=== PATIENT | female | born 1960 | race Caucasian/White ===

== ENCOUNTER 2024-10-20 02:53 | Inpatient (IN) | payer BC, SELFPAY ==
[2024-10-19 21:56] VITALS: BP 186/101
--- NOTE | 2024-10-19 22:12 | ED.GENMED ---
History of Present Illness
General
Chief Complaint: Chest Pain
Source: patient and spouse
Exam Limitations: none
Time Seen by Provider: 10/19/24 22:09
Nursing documentation reviewed up to this point in time: agreed with
History of Present Illness
History of Present Illness:
Pleasant 64-year-old female presents to the emergency department with months of heaviness in her chest. She feels that her 'heart is beating out of her chest '. This has been happening nearly every day 2 to 3 days. Patient states that having
similar symptoms for several months. Denies fever, chills, nausea or vomiting. States that she drinks at least 16 ounces of coffee daily. She usually has a half a bottle of wine each night. Tonight she admits to consuming alcohol. She denies
any medical problems. She does not take any medicines. Has no previous cardiac history.
Past History
Past History
ED Past Surgical History: Negative Cardiac
Social History
Tobacco: Non-smoker
Alcohol: None
Drug: None
Personal:
Living: with family
Employment: Employed
Review of Systems
Review of Systems
Allergies reviewed?: Yes
All Other Systems: ROS reviewed and negative except as documented in HPI and ROS
Constitutional: Reports no symptoms
EENT: Reports no symptoms
Respiratory: Reports no symptoms
Cardiac: Reports no symptoms
ABD/GI: Reports no symptoms
: Reports no symptoms
Musculoskeletal: Reports no symptoms
Skin: Reports no symptoms
Neurological: Reports no symptoms
Endocrine: Reports no symptoms
Hematologic/Lymphatic: Reports no symptoms
Psychiatric: Reports anxiety
Phy Exam
General Physical Exam
General Presentation: well appearing and no apparent distress
General Skin: warm and dry
General Habitus: normal
General Mental: alert
General Hydration: appears well hydrated
ENT Exam
ENT Exam: EOMI, pharynx normal, neck supple and normocephalic
Eye Exam
Eye Exam: PERRL, cornea clear and conjunctiva normal
Cardiovascular Exam
Cardiovascular Exam: regular rate/rhythm, no edema, no murmur and normal peripheral pulses
Pulmonary Exam
Pulmonary Exam: lungs clear, no respiratory distress, no rales, no crackles, no rhonchi, no stridor, no wheezing and no cough
Gastrointestinal Exam
Gastrointestinal Exam: normal bowel sounds, non tender, soft, no organomegaly, no pulsatile mass and non distended
Neurological Exam
Neurological Exam: alert, oriented x3, no motor deficits and speech normal
Musculoskeletal Exam
Musculoskeletal Exam: full ROM and no edema
Skin Exam
Skin Exam: normal color, warm/dry, no rash and no petechia
Psychiatric Exam
Psychiatric Exam: anxious
Scores
Heart Score for Chest Pain Patients
STEMI patient?: No
History: Moderately Suspicious
ECG: Normal
Age: >45 - <65 years
Risk Factors: No Risk Factors
Troponin: >1 - <3 x Normal Limit
Heart Score for Chest Pain Patients: 3
Heart Score Risk: 2.5% MACE over next 6 weeks
Course
Orders/Labs/Results
Orders:
Orders
10/19/24 21:52
EKG [Electrocardiogram (*1)] Urgent
Reason for Study: Chest Pain
EKG- Treatment ONCE
10/19/24 22:09
Cardiac Monitoring- Treatment ONCE
10/19/24 22:30
Alcohol Urgent
Complete Blood Count/With Diff Urgent
Comprehensive Metabolic Panel Urgent
Lipase Urgent
Magnesium Urgent
NT-proBNP Urgent
PTT Urgent
Prothrombin Time Urgent
TSH Urgent
Troponin I Urgent
10/19/24 23:04
CR Chest - 2 Views Urgent
Comment:
Reason For Exam: cp
10/20/24 01:01
Troponin I Urgent
10/20/24 01:42
Heparin 5,000 units IV NOW STA
10/20/24 01:[address] Non Medication Order As Directed
Physician Order: PTT 6 hours after initial start of Heparin infusion
Above order entered?: Yes
10/20/24 02:00
Heparin 44183 Units/250 ml 25,000 units in 250 ml IV PER PROTOCOL
Weight to be used for heparin protocol in kilograms (kg):: 82.6
Protocol:: Cardiac Tx/Acute Coronary
PTT Goal Range to be used:: PTT 73 to 111 seconds
Order type:: Initial
INITIAL Infusion Dose (UNITS/KG/hr) & then follow protocol:: 15 units/kg/hr
Infusion Dose in UNITS/hr & then follow protocol (UNITS/hr):: 1,250
INFUSION RATE in mL/hr & then follow protocol (mL/hr):: 12.5
PTT less than or equal to 64 seconds:: Increase rate by 200 units/hr (+ 2 mL/hr)
PTT 64.1 to 72.9 seconds:: Increase rate by 100 units/hr (+ 1 mL/hr)
PTT 73 to 111 seconds:: Target Range. No change in rate.
PTT 111.1 to 130.9 seconds:: Decrease rate by 100 units/hr (- 1 mL/hr)
PTT 131 to 199.9 seconds:: HOLD for 1 hr. Then decrease rate by 200 units/hr (- 2 mL/hr)
PTT greater than or equal to 200 seconds:: HOLD for 2 hrs & Notify Provider. Then decrease by 200 units/hr (-
2 mL/hr)
Lab follow-up:: Each change, PTT q6h until 2 consecutive are therapeutic. Then PTT
daily.
10/20/24 02:16
Admit/Transfer Patient As Directed
Co-Sign Provider:
Level of Care: Inpatient admission
Assign to:: IVU
Physician / Group: Elvin
Diagnosis: Chest Pain / ACS
Reason for Hospitalization: Chest Pain / ACS
Expected length of stay greater than two midnights?: Yes
ELOS- Estimated Length of Stay in days: 2
I certify the patient meets the requirements for IP care: Yes
Code Status As Directed
Resuscitation Status: Full Code
PRN Pain Medication Management As Directed
May give lesser potent ordered pain med per pt: Yes
preference::
Protocol:: Medication orders for pain may be administered in a
manner that supports deferring to patient preference
when the pt is:
- Requesting an ordered lesser potent pain medication.
Least to most potent pain medications are defined
as: acetaminophen < NSAID < tramadol < opioids
(morphine, oxycodone, hydromorphone).
- Requesting a lesser dose of the same medication IF
ORDERED.
- Requesting a less intrusive route of administration
if both routes are prescribed by the provider (PO <
IV).
10/20/24 02:22
Aspirin Chewable [Low Strength Aspirin] 324 mg PO NOW STA
10/20/24 02:34
Aspirin Chewable [Low Strength Aspirin] 324 mg .ROUTE .STK-MED ONE
10/20/24 02:56
Acetaminophen [Tylenol] 650 mg PO Q4HPRN PRN
Lorazepam [Ativan] 0.5 mg PO Q4HPRN PRN
Morphine Sulfate 2 mg IV Q4HPRN PRN
Nitroglycerin 100 mg/250 ml [Nitroglycerin Premix] 100 mg in 250 ml IV PER PROTOCOL
Initial dose in mcg/min, then titrate:: 2.5
Titrate to keep:: Chest Pain Free
Titrate by mcg/min:: 5 mcg/min, may increase by 10 mcg/min if dose > 20 mcg/min
Frequency of titrations (minutes):: every 3-5 minutes
Maximum dose in mcg/min:: 200
Begin to taper infusion when:: Remained at goal for 2hrs
Taper by mcg/min:: 5 mcg/min
Frequency of taper (minutes) if patient maintains goal:: 30
Taper to off?: Yes
If infusion off & no longer maintaining goal:: Contact Provider
10/20/24 02:56
Echo 2D MMode Doppler [Echo 2D MMode Color/Doppler] Routine
Reason for Study: Chest Pain / ACS
CARDIOLOGY CONSULT Routine
Consulting Provider: Rafael Mckinley
Was physician already notified: No
Reason for consult: Chest Pain / ACS
Consult Notification Routine
Specialty to Notify: Cardiology
Heparin Protocol- PTT Orders As Directed
PTT per Heparin protocol: -Obtain CBC and baseline PTT - if not already collected.
-Obtain PTT 6 hours from start of infusion. Then, every 6 hours until 2 consecutive
PTT's are therapeutic. Then, PTT Daily.
-With each rate change, obtain PTT every 6 hours until 2 consecutive PTT's are
therapeutic. Then, PTT Daily.
Activity As Directed
Activity Level: Ambulate
EKG with chest pain [ECG as needed] As Directed
ECG as needed for:: Chest Pain
I/O [Intake/ Output] As Directed
Frequency: Per unit guidelines
Notify MD As Directed
Notify physician if: PTT is greater than or equal to 200.
Vital Signs As Directed
Frequency: Per unit guidelines
Oxygen Therapy [O2 Therapy] [RESP] Routine
Titrate/Wean O2 to maintain O2 sat greater than (%): 94
10/20/24 06:00
EKG [Electrocardiogram (*1)] IN AM
Reason for Study: Chest Pain
NPO
Allow oral meds: Yes
Allow clear liquids: Sips of Clears
Basic Metabolic Panel IN AM
Cardiovascular Evaluation IN AM
10/20/24 08:00
PTT Urgent
Aspirin Chewable [Low Strength Aspirin] 81 mg PO DAILY
10/22/24 06:00
Complete Blood Count/No Diff Q2D
Comment: notify provider: Platelet count < 130,000 or decrease by 50% from baseline
10/24/24 06:00
Complete Blood Count/No Diff Q2D
Comment: notify provider: Platelet count < 130,000 or decrease by 50% from baseline
10/26/24 06:00
Complete Blood Count/No Diff Q2D
Comment: notify provider: Platelet count < 130,000 or decrease by 50% from baseline
10/28/24 06:00
Complete Blood Count/No Diff Q2D
Comment: notify provider: Platelet count < 130,000 or decrease by 50% from baseline
10/30/24 06:00
Complete Blood Count/No Diff Q2D
Comment: notify provider: Platelet count < 130,000 or decrease by 50% from baseline
11/01/24 06:00
Complete Blood Count/No Diff Q2D
Comment: notify provider: Platelet count < 130,000 or decrease by 50% from baseline
11/03/24 06:00
Complete Blood Count/No Diff Q2D
Comment: notify provider: Platelet count < 130,000 or decrease by 50% from baseline
11/05/24 06:00
Complete Blood Count/No Diff Q2D
Comment: notify provider: Platelet count < 130,000 or decrease by 50% from baseline
Abnormal Lab Results
10/19/24 10/20/24
22:30 01:01
BUN 21 H mg/dl
(7-17)
Glucose 123 H mg/dl
(70-99)
Troponin I 0.035 H* D ng/ml
TSH 4.82 H uIU/ml
(0.47-4.68)
10/19/24 22:30
10/19/24 22:30
Vital Signs
Initial and Last Documented VS:
Initial Vital Signs
Temp Pulse Resp BP Pulse Ox
98.6 F 80 20 186/101 99
10/19/24 21:56 10/19/24 21:56 10/19/24 21:56 10/19/24 21:56 10/19/24 21:56
Last Documented Vital Signs
Temp Pulse Resp BP Pulse Ox
98.0 F 76 20 140/82 100
10/20/24 03:00 10/20/24 04:45 10/20/24 03:00 10/20/24 04:38 10/20/24 03:00
*Pulse Oximetry
Patient hypoxic: no
*EKG
Interpreted by ED Provider?: Yes
EKG Intrepretation Date: 10/19/24
Interpretation: normal
Comparison EKG: changes noted (T wave abnormality from 2017 has improved)
Heart Rate: 82
Rate: normal
Rhythm: sinus
[place]: normal axis
Interval: normal interval
QRS Pattern: normal QRS
Ischemia: no ischemia
*Critical Care Note
Total Time (30-74mins, 75-104mins- exclusive of procedures): Not Applicable
Update Note
Update Note:
Troponin went from 0.014-0.035. Patient is still chest pain-free.
She will be brought into the hospital to trend troponins
Cardiology consult
Discussed with patient and who are in agreement.
ED Attending Note
-
Portions of this chart may have been created with voice recognition software.� Occasional wrong word or��sound alike� substitutions may have occurred due to the inherent limitations of voice recognition software.
Discharge Plan
Departure
Patient Disposition: Admit
Date of Disposition: 10/20/24
Time of Disposition: 01:42
Presentation/result/management discussed w/ accepting MD/DO: Hospitalist
Discharge Problem:
Chest pain, Palpitations
Interventions
Interventions:
*Risk Screen - Suicide Last Done: 10/19/24 21:56
*General Assessment Last Done: 10/19/24 21:56
*Neglect/Abuse Screening Last Done: 10/19/24 21:56
*ED- Fall Risk Assessment Last Done: 10/19/24 22:16
*ED COVID-19 Vaccine History Last Done: 10/19/24 22:16
*Nursing Disposition Last Done: 10/20/24 02:32
ED- Pulmonary Assessment Last Done: 10/19/24 22:27
ED- Cardiac Assessment Last Done: 10/19/24 22:27
Discharge Date and Time
Discharge Date/Time: 10/20/24 02:45
[2024-10-19 22:14] VITALS: BP 175/93
[2024-10-19 22:15] VITALS: BMI 26.1
[2024-10-19 22:38] LABS: % Basophils 0.6 % (0-2); % Eosinophils 1.3 % (0-6); % Immature Granulocytes 0.2 % (0-0.5); % Lymphocytes 32.8 % (20.5-51.1); % Monocytes 7.1 % (1.7-9.3); Absolute Eosinophils 0.1 10^3/uL (0-0.7); Absolute Lymphocytes 2.1 10^3/uL (1.2-3.4); Absolute Monocytes 0.5 10^3/uL (0.1-0.6); Absolute Neutrophils 3.7 10^3/uL (1.4-6.5); Hematocrit 39.6 % (37.0-47.0); Hemoglobin 13.5 g/dL (12.0-16.0); Mean Corp Hgb Conc. 34.1 g/dL (33.0-37.0); Mean Corpuscular Hgb 30.9 pg (27.0-31.0); Mean Corpuscular Volume 90.6 fL (81.0-99.0); Mean Platelet Volume 10.3 fL (7.4-10.4); Nucleated Red Blood Cells % 0 %; Platelet Count 226 10^3/uL (130-400); Red Blood Cell Count 4.37 10^6/uL (4.20-5.40); Red Cell Dist. Width 13.6 % (11.5-14.5); White Blood Cell Count 6.3 10^3/uL (4.8-10.8)
[2024-10-19 22:49] LABS: APTT 27.2 Sec (23.4-35.0)
[2024-10-19 22:59] LABS: ALT (SGPT) 18 U/L (0-35); AST (SGOT) 29 U/L (14-36); Albumin 4.7 g/dl (3.5-5.0); Alkaline Phosphatase 71 U/L (38-126); Blood Urea Nitrogen 21 mg/dl (7-17); Calcium 9.7 mg/dl (8.4-10.2); Carbon Dioxide 24 mmol/L (22-30); Chloride 104 mmol/L (98-107); Estimated Creatinine Clearance 70 ml/min; Glucose 123 mg/dl (70-99); Lipase 97 U/L (23-300); Magnesium 2.3 mg/dl (1.6-2.3); Potassium 3.8 mmol/L (3.5-5.1); Sodium 137 mmol/L (135-145); Total Bilirubin 0.8 mg/dl (0.2-1.3); Total Protein 7.5 g/dl (6.3-8.2); eGFR > 60.00
[2024-10-19 23:00] VITALS: BP 176/97
[2024-10-19 23:00] LABS: Alcohol None Detected
[2024-10-19 23:03] LABS: NT-proBNP 113 pg/ml; Troponin I 0.014 ng/ml
[2024-10-19 23:08] LABS: INR 0.96; PT 13.3 Sec (11.4-14.6)
[2024-10-19 23:28] LABS: TSH 4.82 uIU/ml (0.47-4.68)
[2024-10-20] VITALS (24 sets, daily range): BP systolic 118–186; BP diastolic 59–99; BMI 25.2
[2024-10-20 01:34] LABS: Troponin I 0.035 ng/ml
[2024-10-20] MEDS: HEPARIN 5000 UNITS IV (02:02)
[2024-10-20] MEDS: HEPARIN 25000 UNITS/250 ML IV (02:02)
--- NOTE | 2024-10-20 02:19 | HPS.HSE ---
Family Physician
-
Family Physician: Wen Heath
Chief Complaint
-
Chest Pain
History of Present Illness
Patient is a 64y F with no significant PMH who presents to ED complaining of chest pain and palpitations. Patient states that she has noted chest pressure / heaviness and racing / pounding heartbeat intermittently over the past 2-3 days.
Patient states that her symptoms have gradually increased in frequency and severity. The pain is in the center of her chest - with some radiation into the L shoulder. She has sense of pounding and / or racing heartbeat in her chest. No SOB,
diaphoresis, nausea, etc. Patient denies any prior history of similar symptoms.
She states that the symptoms were much worse this evening with pressure as bad as 8/10.
At the time of my examination in the ED, patient states that her discomfort is 4-5/10.
Medical History
Past Medical History
Past Medical History: Reports Other
Additional Past Medical History:
Ovarian Cyst
Past Surgical History: Reports Other
Additional Past Surgical History:
Left Salpingo-oophorectomy
Social History
Tobacco: Non-smoker
Alcohol: Daily (2 glasses of wine daily.)
Drug: None
Personal:
Family History
Family History: Other (MGM: Heart Disease Father: Alzheimer's Mother: 'Sticky Blood')
Allergies / Home Medications
Allergies reflects when Allergies were last updated in [facility].
Home Medications with original date entered in [facility]
Allergy/Medication List:
Allergies
Allergy/AdvReac Type Severity Reaction Status Date / Time
No Known Allergies Allergy Verified 10/19/24 22:01
Home Medications
No Meds [No Current Medications] 10/19/24
Review of Systems
-
History Source: Patient
A 12 point ROS was completed and negative except as noted: Yes
Constitutional: Denies Fever, Fatigue or Chills
Respiratory: Denies Cough or Trouble Breathing
Cardiac: Reports Chest Pain and Palpitations; Denies Diaphoresis or Syncope
Abdomen/GI: Denies Abdominal Pain, Nausea, Vomiting or Diarrhea
: Denies Dysuria or Frequency
Musculoskeletal: Denies Joint Pain or Edema
Neurological: Denies Dizzy or Headache
Psych: Reports Anxiety; Denies Depression
Physical Exam
Vital Signs
Vital Signs
Temp Pulse Resp BP Pulse Ox
98.6 F 69 10 186/92 99
10/19/24 21:56 10/20/24 02:01 10/20/24 02:01 10/20/24 02:01 10/20/24 02:01
Physical Exam
General: Other (Anxious 64y F.)
HEENT: Moist mucous membranes and PERRLA
Respiratory: Clear; No Wheezes, Rales or Rhonchi
Cardiac: S1/S2 and Regular Rhythm; No Murmur
GI: Soft, Non Tender, Non Distended and Normal Bowel Sounds
Musculoskeletal: No Clubbing, No Cyanosis and No Edema
Neuro: AO x 3
Laboratory Results
-
10/19/24 22:30
10/19/24 22:30
Laboratory Results
PT 13.3 Sec (11.4-14.6) 10/19/24 22:30
INR 0.96 10/19/24 22:30
APTT 27.2 Sec (23.4-35.0) 10/19/24 22:30
Total Bilirubin 0.8 mg/dl (0.2-1.3) 10/19/24 22:30
AST 29 U/L (14-36) 10/19/24 22:30
ALT 18 U/L (0-35) 10/19/24 22:30
Alkaline Phosphatase 71 U/L (38-126) 10/19/24 22:30
Troponin I 0.035 ng/ml H* D 10/20/24 01:01
Lipase 97 U/L (23-300) 10/19/24 22:30
Impression/Plan
-
A/P: Patient is a 64y F with no significant PMH who presents to ED complaining of chest pain and palpitations.
ACS / NSTEMI
- Admit to IVU for further evaluation and treatment.
- Patient with substernal chest pressure and troponin increased from 0.014 to 0.035 on second set.
- EKG with nonspecific ST-T changes.
- IV heparin. IV NTG given hypertension and continued discomfort (11/09 at the time of my exam).
- ASA now and daily.
- Cardiology consultation for additional recommendations +/- ischemic evaluation.
- Follow for any new / worsening symptoms.
- Follow troponin to peak.
Elevated BP
- No documented history of hypertension and on no medications.
- ? secondary to anxiety / stress.
- Monitor for changes on IV NTG as noted above.
- Consider initiation of beta-tj or similar if BP remains elevated.
Generalized Anxiety
- Patient with evident anxiety and notes that she initially thought her symptoms were entirely secondary to this.
- Lorazepam PRN for now.
DVT Prophylaxis: On IV Heparin
Code Status: Full
[2024-10-20] MEDS: LOW STRENGTH ASPIRIN 324 MG PO (02:35)
--- NOTE | 2024-10-20 03:31 | PTCARENOTE ---
received patient from the ED. AAOx3. anxious. denies any cp/palps at this time. heparin gtt infusing per protocol. SR on tele- 70s. educated patient to inform RN with any new changes. answered all questions. [facility] reach.
--- NOTE | 2024-10-20 07:24 | CON.CAR ---
Addendum entered and electronically signed by Demarco Espinoza MD 10/20/24 10:10:
I saw and examined the patient.
The Tongue Presser's note was reviewed and I agree with the note.
Comment:
GEN: No distress, awake, Ox3
HEENT: supple, anicteric, mmm
LUNGS: CTA, no wheezes/rales
CV: Reg, S1/S2, 1/6 syst LSB, no gallop
ABD: soft, BS+, NT/ND
EXT: No edema
NEURO: Gross non-focal
SKIN: No rash
PLan:
64-year-old female with past medical history of elevated lipids presents with palpitations and substernal chest tightness. She has had several episodes of this over the past 2 to 3 days. Usually the symptoms will start after she gets a pounding
sensation in her chest. She denies any shortness of breath, sweats, or nausea. She was found to have a rising troponin which is increased up to 0.06. EKG has nonspecific ST and T wave abnormalities in the anterolateral leads.
Non-STEMI. Recommend invasive cardiac catheterization.
Check echocardiogram. Continue aspirin, heparin. Add metoprolol. Check lipids. Will add lisinopril 5 mg daily.
She is hesitant to pursue an invasive evaluation at this point. We will discuss further with her and her family.
Original Note:
Medical History
-
Chief Complaint: Chest pain, palpitation
History of Present Illness:
64-year-old female with no significant past medical history presented to evening of 10/19/2024 with chest pressure and palpitations. Patient reports she has noticed a pressure/heaviness in chest for past 2 days. 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 No radiation of heaviness, no associated shortness of breath, nausea, diaphoresis. She did not feel presyncopal or have syncope.
Described discomfort as 8/10 feeling like her heart was out of control and chest heavy. . In ED received ASA and started on heparin drip. Blood pressure Elevated as high as 186/101. There was consideration for starting nitro drip but it was not
started. Chest pain currently 0 out of 10. Has not felt the racing/pounding sensation since admission. In addition, she has noted bilateral shoulder/upper arm pain that she believes is arthritic in nature, 'feels like she did a bunch of
push-ups'. Left-sided shoulder pain can radiate to chest. Shoulder pain is independent of presenting symptoms.
Workup: Troponin 0.014��0.035--0.057
proBNP 113
EKG normal sinus rhythm nonspecific ST abnormality
No known past medical history
Had blood pressure checked for a couple weeks ago and was noted to be elevated. Last saw PCP in fall 2022. No known history of CAD, hypertension, CT, HF, CVA, chronic kidney dz
Past Medical History
Past Medical History: Other (As above)
Past Surgical History: Other (Left ovarian cyst and fallopian tube removal)
Social History
Tobacco: Non-Smoker
Alcohol: Daily (2 glasses of wine daily)
Drug: None
Living: With Family
Family History
Family History: Other (Grandmother with heart problem, mother with problem with iron, cousin with sudden cardiac age 68)
Allergies / Home Medications
Allergy/AdvReac Type Severity Reaction Status Date / Time
No Known Allergies Allergy Verified 10/19/24 22:01
�Medication �Instructions �Recorded �Confirmed �Type
No Meds [No Current Medications] 10/19/24 10/19/24 History
Review of Systems
-
History Source: Patient
All other systems: Negative unless noted
Physical Exam
Vital Signs
Temp Pulse Resp BP Pulse Ox
98.3 F 76 18 140/82 98
10/20/24 07:22 10/20/24 04:45 10/20/24 07:22 10/20/24 04:38 10/20/24 07:22
Lab Results
10/19/24 22:30
Troponin I Cancelled 10/20/24 14:56
Yet-M-Khckhcfznsg Pept 113 pg/ml 10/19/24 22:30
GEN: No distress, awake, Ox3
HEENT: supple, anicteric, mmm
LUNGS: CTA, no wheezes/rales
CV: Reg, S1/S2, , no murmur
ABD: soft, BS+, NT/ND
EXT: No edema
NEURO: Gross non-focal
SKIN: No rash
Impression / Plan
-
PCP:Wen Heath
Has not seen florist helper
Impression:
Chest heaviness
Elevated troponin
Hypertension
Palpitations
Alcohol use
EKG: Normal sinus rhythm, nonspecific ST-T wave abnormality
Plan:
NSTEMI-
-continue trending troponins to peak 0.014-->0.035-->0.057
-EKG NSR with nonspec ST-T changes
-IV heparin
-start beta tj Toprol 25 mg daily-I ordered
-ASA daily
-Keep n.p.o.for cath today
-currently CP free, SL NTG for pain
-FLP: LDL 118, HDL 159, TG 45, tchol 286
-start statin
-proBNP 113
-check echo
-telem personally reviewed: NSR 70-80s
Data Reviewed
-
EKG: Tracing Personally Visualized and interpreted
Labs: Labs Reviewed by me
[2024-10-20 07:40] LABS: APTT 132.2 Sec (23.4-35.0)
[2024-10-20 07:56] LABS: Troponin I 0.057 ng/ml
[2024-10-20 08:17] LABS: Blood Urea Nitrogen 16 mg/dl (7-17); Calcium 10.1 mg/dl (8.4-10.2); Carbon Dioxide 26 mmol/L (22-30); Chloride 106 mmol/L (98-107); Estimated Creatinine Clearance 90 ml/min; Glucose 109 mg/dl (70-99); Potassium 3.9 mmol/L (3.5-5.1); Sodium 141 mmol/L (135-145); Total Cholesterol 286 mg/dl (50-199); Triglyceride 45 mg/dl (10-149); Very Low Density Lipoprotein 9 mg/dl (0-30); eGFR > 60.00
[2024-10-20 08:28] LABS: HDL Cholesterol 159 mg/dl; LDL Cholesterol, Calculated 118 mg/dl
[2024-10-20] MEDS: LOW STRENGTH ASPIRIN 81 MG PO (08:41)
[2024-10-20] MEDS: TOPROL XL 25 MG PO (08:41)
--- NOTE | 2024-10-20 08:51 | W.PN.HOSP.TC ---
Today's Communication/Plan
-
.
Assessment / Plan
Assessment / Plan
Physical Exam
General: Other (Anxious 64y F.)
HEENT: Moist mucous membranes and PERRLA
Respiratory: Clear; No Wheezes, Rales or Rhonchi
Cardiac: S1/S2 and Regular Rhythm; No Murmur
GI: Soft, Non Tender, Non Distended and Normal Bowel Sounds
Musculoskeletal: No Clubbing, No Cyanosis and No Edema
Neuro: AO x 3, followed commands
Psych: calm
Patient is a 64y F with no significant PMH who presents to ED complaining of chest pain and palpitations.
# Chest pain with palpitation
rule out ACS / NSTEMI
No chest pain .
- Patient with substernal chest pressure and troponin increased from 0.014 to 0.035 on second set.
- EKG with nonspecific ST-T changes.
- IV heparin. IV NTG given hypertension and continued discomfort (4/10 at the time of my exam).
- ASA now and daily.
- Cardiology consultation for additional recommendations +/- ischemic evaluation.
- Follow for any new / worsening symptoms.
- Follow troponin to peak.
Elevated BP
- No documented history of hypertension and on no medications.
- ? secondary to anxiety / stress.
- Monitor for changes on IV NTG as noted above.
- Consider initiation of beta-tj or similar if BP remains elevated.
Generalized Anxiety
DVT Prophylaxis: On IV Heparin
Code Status: Full
Anticipated Discharge: 24 - 48 hours
Subjective/Interval History
-
Date of Service: October 20, 2024
Objective Data
-
Labs:
Laboratory Results
10/19/24 10/20/24
22:30 07:17
WBC 6.3
Hgb 13.5
Hct 39.6
Plt Count 226
PT 13.3
INR 0.96
APTT 27.2 132.2 H
Sodium 137 141
Potassium 3.8 3.9
Chloride 104 106
Carbon Dioxide 24 26
BUN 21 H 16
Creatinine 0.9 0.7
Glucose 123 H 109 H
Calcium 9.7 10.1
Total Bilirubin 0.8
AST 29
ALT 18
Alkaline Phosphatase 71
Vital Signs:
Vital Signs
Temp Pulse Resp BP Pulse Ox
98.3 F 72 18 173/90 98
10/20/24 07:22 10/20/24 08:41 10/20/24 07:22 10/20/24 08:41 10/20/24 07:22
--- NOTE | 2024-10-20 10:26 | CM ---
Chart reviewed. Patient is independent of ADLS, lives with her in a 2 [address], 1 TARYN, 0 DME. Plan is for the patient to return home. CM to follow
[2024-10-20] MEDS: ATIVAN 0.5 MG PO (12:36)
--- NOTE | 2024-10-20 15:01 | ITS.CL.CATH ---
[facility] - Catheterization
Cardiac Catheterization
Procedure Report:
LEFT HEART CATHETERIZATION
Date of Procedure: October 20, 2024
Referring: Dr. Justin Espinoza
PROCEDURES:
1. Left heart catheterization with coronary and single-plane left ventriculography
INDICATION: This is a 64-year-old female with a past medical history notable for palpitations and substernal chest tightness. Her troponin initially measured 0.014 nanograms ng/ml then increase serially to 0.035 ng/ml and 0.057 ng/mL. She is now
referred for coronary angiography
ACCESS: Right radial artery, 6 Cymro sheath
HEMODYNAMICS : (mmHg)
AO (s/d) : 140/83
LV (s/d) : 137/12
LVEDP : 70
CORONARY FINDINGS
DOMINANCE: Right
LEFT MAIN: Normal
LEFT ANTERIOR DESCENDING: The LAD arises normally from the left main and runs in the anterior interventricular groove. The LAD is widely patent over its course
CIRCUMFLEX: The circumflex is a medium caliber nondominant vessel supplying a single sizable bifurcating obtuse marginal branch. The circumflex appears widely patent
RIGHT CORONARY ARTERY: The right coronary artery is a large-caliber dominant vessel that is widely patent over its course. The PDA is large. The posterolateral branches large.
VENTRICULOGRAPHY: Left ventriculography is performed in an PRATT projection. The digital single-plane left ventricular ejection fraction is visually estimated at 50%.
SEDATION: 22 minutes of procedural sedation was utilized. An independent medical lab technologist was present to assist with and help manage the patient's level of consciousness and physiologic status.
RADIATION SUMMARY: Fluoro Time (min): 2.5, Dose (mGy): 258, DAP (Gy.cm2) : 16.6
Closure Device: TR band
CONCLUSIONS
1. Nonobstructive coronary disease
2. Low normal LVEF
RECOMMENDATIONS
1. Aspirin 81 mg daily for several months
2. Risk factor modification including good blood pressure and lipid control.
Copy to: Dr. Justin Espinoza
--- NOTE | 2024-10-20 15:05 | PTCARENOTE ---
Pt returned from cardiac cath, VSS, monitor showing NSR. Right radial band intact, no bleeding, no hematoma noted. +cms to fingers. Denies pain. Call lake in reach, at bedside.
[2024-10-20] MEDS: LIPITOR 40 MG PO (18:31)
[2024-10-21 03:00] VITALS: BP 137/88
[2024-10-21 05:25] LABS: Hematocrit 39.4 % (37.0-47.0); Hemoglobin 13.3 g/dL (12.0-16.0); Mean Corp Hgb Conc. 33.8 g/dL (33.0-37.0); Mean Corpuscular Hgb 31.2 pg (27.0-31.0); Mean Corpuscular Volume 92.5 fL (81.0-99.0); Mean Platelet Volume 10.3 fL (7.4-10.4); Platelet Count 203 10^3/uL (130-400); Red Blood Cell Count 4.26 10^6/uL (4.20-5.40); Red Cell Dist. Width 14.1 % (11.5-14.5); White Blood Cell Count 5.9 10^3/uL (4.8-10.8)
[2024-10-21 05:48] LABS: Blood Urea Nitrogen 15 mg/dl (7-17); Calcium 9.7 mg/dl (8.4-10.2); Carbon Dioxide 28 mmol/L (22-30); Chloride 103 mmol/L (98-107); Estimated Creatinine Clearance 90 ml/min; Glucose 104 mg/dl (70-99); Potassium 3.9 mmol/L (3.5-5.1); Sodium 138 mmol/L (135-145); eGFR > 60.00
--- NOTE | 2024-10-21 06:55 | W.PN.HOSP.TC ---
Today's Communication/Plan
-
Discharge
Assessment / Plan
Assessment / Plan
Physical Exam
General: Other (Anxious 64y F.)
HEENT: Moist mucous membranes and PERRLA
Respiratory: Clear; No Wheezes, Rales or Rhonchi
Cardiac: S1/S2 and Regular Rhythm; No Murmur
GI: Soft, Non Tender, Non Distended and Normal Bowel Sounds
Musculoskeletal: No Clubbing, No Cyanosis and No Edema
Neuro: AO x 3, followed commands
Psych: calm
Patient is a 64y F with no significant PMH who presents to ED complaining of chest pain and palpitations.
# Chest pain with palpitation
ruled out ACS / NSTEMI
Troponin elevation due to non ischemic myocardial injury
No chest pain .
s/p IV heparin and IV nitro
Cardiac cath 10/20/2024: Nonocclusive CAD.
Left main normal. LAD widely patent. Circumflex widely patent. RCA widely patent. PDA large, posterior lateral branch is large, LVEF 50%
recommended aspirin , BB, Federico inhibitor and statin
d/w pt potentials side effects of each medicine, given script for blood work.
Elevated BP
new diagnosis of primary HTN
as above, started on new medications, counseled regarding potential side effects, she verbalized understanding
Generalized Anxiety
DVT Prophylaxis: On IV Heparin
Code Status: Full
Total discharge time spent to see the patient, examine the patient, review data and lab results, discuss discharge plan with patient and nursing staff around 65 minutes
Anticipated Discharge: Today
Subjective/Interval History
-
Date of Service: October 21, 2024
Objective Data
-
Labs:
Laboratory Results
10/21/24
05:17
WBC 5.9
Hgb 13.3
Hct 39.4
Plt Count 203
Sodium 138
Potassium 3.9
Chloride 103
Carbon Dioxide 28
BUN 15
Creatinine 0.7
Glucose 104 H
Calcium 9.7
Vital Signs:
Vital Signs
Temp Pulse Resp BP Pulse Ox
98.1 F 62 16 137/88 98
10/21/24 03:02 10/21/24 03:00 10/21/24 03:02 10/21/24 03:00 10/21/24 03:02
I&O
10/19/24 10/20/24 10/21/24
06:59 06:59 06:59
Intake Total 1320 / 1320
Balance 1320 / 1320
--- NOTE | 2024-10-21 06:56 | W.PN.CARDCBS ---
Addendum entered and electronically signed by Umesh Younger DO 10/21/24 10:08:
I saw and examined the patient.
The Sewer Contractor's note was reviewed and I agree with the note.
Comment:
Plan:
Stable for d/c today
Meds reviewed and dosing
Cath and echo reviewed with pt
Outpt followu up arranged
Discussed with nursing.
Original Note:
Today's Communication / Plan
-
Okay for discharge today
Continue newly started ASA, statin, beta-tj, FATMATA inhibitor
Impression / Plan
-
PCP:Wen Hetah
Has not seen biometrics head in past, first seen by Dr Trinidad
Impression:
Chest heaviness
NSTEMI
Hypertension
Palpitations
Alcohol use
EKG: Normal sinus rhythm, nonspecific ST-T wave abnormality
Cardiac cath 10/20/2024: Nonocclusive CAD.
Left main normal. LAD widely patent. Circumflex widely patent. RCA widely patent. PDA large, posterior lateral branch is large, LVEF 50%
Echo: EF 60%, possible mild anterolateral hypokinesis, normal diastolic function, RV normal, no significant valvular heart disease
Plan:
NSTEMI-
-status post left heart cath showing nonocclusive CAD
-troponin peak 0.057
-EKG NSR with nonspec ST-T changes
-ASA 81 mg daily started
-Atorvastatin 40 mg daily started
-Lisinopril 5 mg daily started
-Toprol 25 mg daily started
-FLP: LDL 118, HDL 159, TG 45, tchol 286
-Echo normal LV/RV size and function
-d/c today
-f/u cardiology 3 wks-arranged
-telem personally reviewed: NSR 50-60s
Progress Note - Sas Analyst
Subjective
Date of Service: October 21, 2024
Cath yesterday with no obstructive CAD
feels well, had good night sleep
no CP/SOB
Objective
Labs:
10/21/24 05:17
10/21/24 05:17
Labs
Hgb 13.3 g/dL (12.0-16.0) 10/21/24 05:17
Hct 39.4 % (37.0-47.0) 10/21/24 05:17
Plt Count 203 10^3/uL (130-400) 10/21/24 05:17
PT 13.3 Sec (11.4-14.6) 10/19/24 22:30
INR 0.96 10/19/24 22:30
APTT Cancelled 10/20/24 14:41
Sodium 138 mmol/L (135-145) 10/21/24 05:17
Potassium 3.9 mmol/L (3.5-5.1) 10/21/24 05:17
BUN 15 mg/dl (7-17) 10/21/24 05:17
Creatinine 0.7 mg/dL (0.6-1.0) 10/21/24 05:17
Glucose 104 mg/dl (70-99) H 10/21/24 05:17
Troponins
10/19/24 10/20/24 10/20/24
22:30 01:01 02:56
Troponin I 0.014 0.035 H* D Cancelled
10/20/24 10/20/24 10/20/24
07:17 07:24 08:56
Troponin I 0.057 H* D Cancelled Cancelled
10/20/24 10/20/24 10/20/24
13:00 13:38 14:41
Troponin I Cancelled Cancelled 0.030 D
10/20/24 10/20/24
14:56 19:00
Troponin I Cancelled Cancelled
Vital Signs and I&O:
Vital Signs
Temp Pulse Resp BP Pulse Ox
98.1 F 62 16 137/88 98
10/21/24 03:02 10/21/24 03:00 10/21/24 03:02 10/21/24 03:00 10/21/24 03:02
Vital Signs
Temp Pulse Resp BP Pulse Ox
98.1 F 62 16 137/88 98
10/21/24 03:02 10/21/24 03:00 10/21/24 03:02 10/21/24 03:00 10/21/24 03:02
Intake & Output
10/18/24 10/19/24 10/20/24 10/21/24
06:59 06:59 06:59 06:59
Intake Total 1320 / 1320
Balance 1320 / 1320
Physical Exam
Physical Exam
GEN: No distress, awake, Ox3
HEENT: supple, anicteric, mmm
LUNGS: CTA, no wheezes/rales
CV: Reg, S1/S2, no murmur
ABD: soft, BS+, NT/ND
EXT: No edema
NEURO: Gross non-focal
SKIN: R radial cath puncture site healed, 2+ radial pulse
[2024-10-21 07:00] VITALS: BP 129/78
[2024-10-21] MEDS: ZESTRIL 5 MG PO (07:42)
[2024-10-21] MEDS: LOW STRENGTH ASPIRIN 81 MG PO (07:42)
[2024-10-21] MEDS: FLUSH (NSS) 1 FLUSH IV (07:42)
[2024-10-21] MEDS: TOPROL XL 25 MG PO (07:42)
--- NOTE | 2024-10-21 07:50 | PTCARENOTE ---
The patient is aaox3. Vital sign are stable. NSR is noted on the monitor. Her right wrist is ALFONSO. A right radial pulse is noted. She has no complaints of pain or discomfort. I instructed her on her activity restrictions. She is hoping to go home
today.
--- NOTE | 2024-10-21 09:34 | W.DCSUMMARY ---
Discharge Summary
Discharge Data
Date of Admission: 10/20/24
Date of Discharge: 10/21/24
-
Pending Results: No
Hospital Course
64 years old female presented with chest discomfort and palpitations. Patient had mildly positive troponin peak 0.057. EKG showed normal sinus rhythm with nonspecific ST�T wave abnormality. Patient was initially started on intravenous heparin and
intravenous nitroglycerin. She had left heart catheterization that showed nonocclusive coronary artery disease. Echocardiogram showed left ventricular ejection fraction of 60% with possible mild anterolateral hypokinesia, no significant valvular
heart disease. Patient did not have recurrent palpitation or chest heaviness. She was found to have uncontrolled high blood pressure. She was diagnosed with a primary hypertension. She was started on medications including beta-tj,
lisinopril, statin and aspirin. Patient was counseled regarding potential side effects of each medication and she verbalized understanding. She was given a prescription to repeat blood work for monitoring of kidney function, liver function and
muscle enzyme. She remained hemodynamic stable was discharged home in a stable condition.
Discharge Plan
-
Patient Disposition: Home (Routine Discharge)
Discharge Diagnosis/Procedures: cardiac catheterization
You had palpitation and chest heaviness. You were diagnosed with nonischemic myocardial injury secondary to uncontrolled hypertension. You are started on new medications. You underwent heart catheterization.
Echocardiogram showed normal left ventricular ejection fraction around 60% with no significant valvular heart disease.
You are started on new medications as follows:
-Aspirin antiplatelet, potential side effects include bruising, gastritis/gastric ulcer
-Toprol, beta-tj, potential side effects include hypotension, fatigue, bradycardia
-Lisinopril, FATMATA inhibitor, potential side effects include hyperkalemia, renal dysfunction, cough, angioedema.
-Lipitor, statin for high cholesterol, LDL was 118, potential side effects include fatigue, myopathy, elevated liver enzyme
You will need to do blood work in 1 to 2 weeks and follow-up with your primary care doctor
Diet: Low Cholesterol
Driving Restrictions: No driving for 24 hours
Blood Work: CBC&CMP&LFT&CPK in 1-2 weeks
Stand Alone Forms: DC Instructions- Cath/EP Lab
Referrals:
Nitza Alford PA-C [Specified Professional Personl] - 11/07/24 3:20 pm (Cardiology followup appointment)
Wen Heath MD [Family Provider] - in one to two weeks
Prescriptions:
New
atorvastatin 40 mg Tablet
40 mg PO QPM Qty: 30 0RF
aspirin 81 mg Tablet,Chewable
81 mg PO DAILY Qty: 30 0RF
lisinopril 5 mg Tablet
5 mg PO DAILY Qty: 30 0RF
metoprolol succinate 25 mg Tablet Extended Release 24 Hr
25 mg PO DAILY Qty: 30 0RF
Discharge Orders:
Discharge Patient (As Directed); Ordered 10/21/24
Ordered By: Tashi Tovar
Care Plan Goals
Care Plan Goals:
Problem: Readiness for enhanced knowledge related to diagnosis and treatment plan
Goal: Understand your diagnosis and treatment plan needs, including medications if applicable.
Instructions: Know your diagnosis, underlying causes and treatment plan options, including medications if applicable. Consult with your health care team to learn about your diagnosis and treatment plan, including medications if applicable.
Discharge Date and Time
Print Language: [place]
[2024-10-21 10:44] VITALS: BP 144/85
== END 2024-10-21 11:35 | disposition home or self-care (01) | DRG 287 ==
LOC: IVU 02:53
PROVIDERS: Internal Medicine Interventional Cardiology; Nurse Practitioner; ADMITTING PHYSICIAN Hospitalist; ATTENDING PHYSICIAN Internal Medicine; EMERGENCY PHYSICIAN Student in an Organized Health Care Education/Training Program; FAMILY PHYSICIAN Internal Medicine; OTHER PHYSICIAN Internal Medicine Cardiovascular Disease
PROC: B2111ZZ Fluoroscopy of Multiple Coronary Arteries using Low Osmolar Contrast (ICD-10-PCS; 2024-10-20)
PROC: 4A023N7 Measurement of Cardiac Sampling and Pressure, Left Heart, Percutaneous Approach (ICD-10-PCS; 2024-10-20)
DX: I5A Non-ischemic myocardial injury (non-traumatic) (principal); I10 Essential (primary) hypertension; I25.10 Atherosclerotic heart disease of native coronary artery without angina pectoris; Z79.82 Long term (current) use of aspirin; F41.1 Generalized anxiety disorder; E78.00 Pure hypercholesterolemia, unspecified
CPT/HCPCS: 71046; 80048; 80053; 80061; 82077; 83690; 83735; 83880; 84443; 84484; 85025; 85027; 85610; 85730; 93005; 93306; 93458; 96374; 99152; 99285; C1894; Q9967

== ENCOUNTER → 2025-01-24 13:03 | Outpatient (REF) | payer BC, SELFPAY | LOC: RAD 13:03 | PROVIDERS: ATTENDING PHYSICIAN Student in an Organized Health Care Education/Training Program | DX: Z13.820 Encounter for screening for osteoporosis (principal) | CPT/HCPCS: 77080 ==